=== PATIENT | female | born 1950 | race Caucasian/White ===

== ENCOUNTER 2022-10-28 20:19 | Inpatient (IN) | payer MEDICARE ==
--- NOTE | 2022-10-28 20:38 | ED ---
General Adult HPI - General Chief complaint: Weakness Stated complaint: weakness Time Seen by Provider: 10/28/22 20:26 Source: patient, family Mode of arrival: EMS Limitations: no limitations - History of Present Illness Initial comments: Patient presents to the ED by ambulance for evaluation with her daughter at bedside. Patient states that she has MS, and she has had progressively increasing generalized weakness over the past 6 months or so. Patient states that she has now become unable to stand up and ambulate on her own. Patient's daughter states that she has been taking care of the patient for the past several days. Patient's daughter states that the patient was diagnosed with an abdominal mass on a CT done at [facility] about 3 months ago, and they were told that it may be ovarian cancer. Patient was instructed to follow up wi th an oncologist, but she states that she has not done so yet. Patient also admits to having increasing bilateral lower extremity edema. Patient's daughter states that the patient has not been eating very much over the past week or so. Patient denies trauma/injury/fall, any pain, fever or chills, headache, focal numbness/weakness/neuro deficit, cough or cold symptoms, chest pain, dyspnea, palpitations, dizziness, abdominal pain, nausea/vomiting/diarrhea, constipation, bloody or melanotic stool, dysuria or urinary symptoms, decreased urine output, or any other symptoms or complaints. Patient reports that she is DO NOT RESUSCITATE. - Related Data Home Medications Medication Instructions Recorded Confirmed Acetaminophen [Tylenol Extra 1,000 mg PO BID 10/28/22 10/28/22 Strength] Allergies Allergy/AdvReac Type Severity Reaction Status Date / Time erythromycin base Allergy Unknown Verified 10/28/22 21:06 Penicillins Allergy Unknown Verified 10/28/22 21:06 Sulfa (Sulfonamide Allergy Unknown Verified 10/28/22 21:06 Antibiotics) Review of Systems ROS Statement: Those systems with pertinent positive or pertinent negative responses have been documented in the HPI. ROS Other: All systems not noted in ROS Statement are negative. Past Medical History Additional Past Medical History / Comment(s): MS Smoking Status: Current every day smoker General Exam Limitations: no limitations General appearance: alert, cachectic Head exam: Present: atraumatic, normocephalic Eye exam: Present: normal appearance, PERRL, EOMI ENT exam: Present: mucous membranes dry Neck exam: Present: other (Trachea is in midline) Respiratory exam: Present: normal lung sounds bilaterally. Absent: respiratory distress, wheezes, rales, rhonchi, stridor Cardiovascular Exam: Present: regular rate, normal rhythm, normal heart sounds, other (Normal radial pulses bilaterally) GI/Abdominal exam: Present: soft, diminished bowel sounds, other (Firm right lo wer quadrant abdominal mass is palpable on exam). Absent: tenderness, guarding Extremities exam: Present: other (Bilateral lower extremity pitting edema; stage I sacral decubitus ulcer). Absent: calf tenderness Back exam: Absent: CVA tenderness (R), CVA tenderness (L) Neurological exam: Present: alert, oriented X3, CN II-XII intact. Absent: motor sensory deficit Psychiatric exam: Present: normal affect, normal mood Skin exam: Present: warm, dry, intact, normal color Course Vital Signs 10/28/22 10/28/22 10/28/22 20:20 21:00 22:00 Temperature 97.7 F Pulse Rate 103 H 101 H 80 Respiratory 16 16 16 Rate Blood Pressure 112/76 114/63 117/68 O2 Sat by Pulse 100 100 99 Oximetry 10/28/22 23:00 Temperature Pulse Rate 86 Respiratory 16 Rate Blood Pressure 115/55 O2 Sat by Pulse 98 Oximetry - Reevaluation(s) Reevaluation #1: 10/28/22 23:34 Case, H&P, test results and ED management thus far were discussed with Dr. Saleh. He accepts hospital admission. He agrees with oncology consultation. He has no further recommendations at this time. EKG Findings - EKG Comments: EKG Findings:: ED physician interpretation: Normal sinus rhythm, no ectopy, ventricular rate of 96 bpm, normal HI and QRS intervals, normal QT interval, normal axis, no ST or T-wave abnormality Medical Decision Making - Medical Decision Making Was pt. sent in by a medical professional or institution (, PA, COUNCIL ON AGING DIRECTOR, urgent care, hospital, or [facility]...) When possible be specific @ -[No] Did you speak to anyone other than the patient for history (EMS, parent, family, police, friend...)? What history was obtained from this source @ -Patient's daughter also provided medical history. Did you review nursing and triage notes (agree or disagree)? Why? @ -[I reviewed and agree with nursing and triage notes] Were old charts reviewed (outside hosp., previous admission, EMS record, old EKG, old radiological studies, urgent care reports/EKG's, [facility] records)? Report findings @ -[No old charts were reviewed] Differential Diagnosis (chest pain, altered mental status, abdominal pain women, abdominal pain men, vaginal bleeding, weakness, fever, dyspnea, syncope, headache, dizziness, GI bleed, back pain, seizure, CVA, palpatations, mental health, musculoskeletal)? @ -Differential Weakness: Hypoglycemia, hyperglycemia, shock, sepsis, hyponatremia, anemia, infection, IA, ETOH, adverse medicine reaction, overdose, dehydration, electrolyte abnormality, renal disease, abdominal mass, malignancy, this is not meant to be an all- inclusive list. EKG interpreted by me (3pts min.). @ -[As above] X-rays interpreted by me (1pt min.). @ -[Chest x-ray was reviewed myself, and agree with the radiologist's interpretation as above.] CT interpreted by me (1pt min.). @ -[CT abdomen/pelvis was reviewed myself, and agree with the radiologist's interpretation as above.] U/S interpreted by me (1pt. min.). @ -[None done] What testing was considered but not performed or refused? (CT, X-rays, U/S, labs)? Why? @ -[None] What meds were considered but not given or refused? Why? @ -[None] Did you discuss the management of the patient with other professionals (professionals i.e. , PA, COUNCIL ON AGING DIRECTOR, lab, RT, psych nurse, social media senior associate, aircraft log clerk, teacher, chief analytics officer, leather case finisher)? Give summary @ -As above Was smoking cessation discussed for >3mins.? @ -[No] Was critical care preformed (if so, how long)? @ -[No] Were there social determinants of health that impacted care today? How? (Homelessness, low income, unemployed, alcoholism, drug addiction, transportation, low edu. Level, literacy, decrease access to med. care, fpc, rehab)? @ -[No] Was there de-escalation of care discussed even if they declined (Discuss DNR or withdrawal of care, Hospice)? DNR status @ -[No] What co-morbidities impacted this encounter? (DM, HTN, Smoking, COPD, CAD, Cancer, CVA, ARF, Chemo, Hep., AIDS, mental health diagnosis, sleep apnea, morbid obesity)? @ -Multiple sclerosis Was patient admitted / discharged? Hospital course, mention meds given and route, prescriptions, significant lab abnormalities, going to OR and other pertinent info. @ -[Patient and daughter are aware the patient's test results, and they both agree with hospital admission at this time. I suspect that the patient's progressing weakness and cachexia are likely due to malignancy given the large mass seen on her abdominal/pelvic CT. Patient has been treated with IV fluid hydration in the ED. Patient has leukocytosis, but she is afebrile and without an infectious source at this time Will admit the patient to the hospital for further evaluation and management. Dr. Saleh has accepted hospital admission.] Undiagnosed new problem with uncertain prognosis? @ -[No] Drug Therapy requiring intensive monitoring for toxicity (Heparin, Nitro, Insulin, Cardizem)? @ -[No] Were any procedures done? @ -[No] Diagnosis/symptom? @ -Generalized weakness Acute, or Chronic, or Acute on Chronic? @ -Acute on chronic Uncomplicated (without systemic symptoms) or Complicated (systemic symptoms)? @ -[default] Side effects of treatment? @ -[No] Exacerbation, Progression, or Severe Exacerbation? @ -[No] Poses a threat to life or bodily function? How? (Chest pain, USA, IA, pneumonia, PE, COPD, DKA, ARF, appy, cholecystitis, CVA, Diverticulitis, Homicidal, Suicidal, threat to staff... and all critical care pts) @ -[No] Diagnosis/symptom? @ -[Large abdominal mass] Acute, or Chronic, or Acute on Chronic? @ -[Chronic] Uncomplicated (without systemic symptoms) or Complicated (systemic symptoms)? @ -[default] Side effects of treatment? @ -[none] Exacerbation, Progression, or Severe Exacerbation] @ -[no] Poses a threat to life or bodily function? @ -[no] Diagnosis/symptom? @ -[Bilateral lower extremity edema] Acute, or Chronic, or Acute on Chronic? @ -[Acute on chronic] Uncomplicated (without systemic symptoms) or Complicated (systemic symptoms)? @ -[default] Side effects of treatment? @ -[none] Exacerbation, Progression, or Severe Exacerbation] @ -[no] Poses a threat to life or bodily function? @ -[no] - Lab Data Result diagrams: 10/28/22 20:52 10/28/22 20:52 Lab Results 10/28/22 10/28/22 10/28/22 Range/Units 20:52 20:52 20:52 WBC 30.7 H (3.8-10.6) k/uL RBC 3.87 (3.80-5.40) m/uL Hgb 11.1 L (11.4-16.0) gm/dL Hct 36.5 (34.0-46.0) % MCV 94.4 (80.0-100.0) fL MCH 28.8 (25.0-35.0) pg MCHC 30.5 L (31.0-37.0) g/dL RDW 15.4 (11.5-15.5) % Plt Count 788 H (150-450) k/uL MPV 8.9 Neutrophils % 97 % Lymphocytes % 1 % Monocytes % 1 % Eosinophils % 0 % Basophils % 0 % Neutrophils # 29.8 H (1.3-7.7) k/uL Lymphocytes # 0.4 L (1.0-4.8) k/uL Monocytes # 0.4 (0-1.0) k/uL Eosinophils # 0.0 (0-0.7) k/uL Basophils # 0.1 (0-0.2) k/uL Manual Slide Review Performed PT 10.1 (9.0-12.0) sec INR 0.9 (<1.2) APTT 24.6 (22.0-30.0) sec Sodium 131 L (137-145) mmol/L Potassium 4.9 (3.5-5.1) mmol/L Chloride 96 L (98-107) mmol/L Carbon Dioxide 25 (22-30) mmol/L Anion Gap 10 mmol/L BUN 28 H (7-17) mg/dL Creatinine 0.54 (0.52-1.04) mg/dL Est GFR (CKD-EPI)AfAm >90 (>60 ml/min/1.73 sqM) Est GFR (CKD-EPI)NonAf >90 (>60 ml/min/1.73 sqM) Glucose 108 H (74-99) mg/dL Lactic Ac Sepsis Rflx Plasma Lactic Acid Roberto (0.7-2.0) mmol/L Calcium 8.3 L (8.4-10.2) mg/dL Magnesium 1.9 (1.6-2.3) mg/dL Total Bilirubin 0.6 (0.2-1.3) mg/dL AST 31 (14-36) U/L ALT 19 (4-34) U/L Alkaline Phosphatase 265 H (38-126) U/L Troponin I (0.000-0.034) ng/mL NT-Pro-B Natriuret Pep pg/mL Total Protein 5.7 L (6.3-8.2) g/dL Albumin 2.9 L (3.5-5.0) g/dL TSH 2.820 (0.465-4.680) mIU/L 10/28/22 10/28/22 10/28/22 Range/Units 20:52 20:52 20:52 WBC (3.8-10.6) k/uL RBC (3.80-5.40) m/uL Hgb (11.4-16.0) gm/dL Hct (34.0-46.0) % MCV (80.0-100.0) fL MCH (25.0-35.0) pg MCHC (31.0-37.0) g/dL RDW (11.5-15.5) % Plt Count (150-450) k/uL MPV Neutrophils % % Lymphocytes % % Monocytes % % Eosinophils % % Basophils % % Neutrophils # (1.3-7.7) k/uL Lymphocytes # (1.0-4.8) k/uL Monocytes # (0-1.0) k/uL Eosinophils # (0-0.7) k/uL Basophils # (0-0.2) k/uL Manual Slide Review PT (9.0-12.0) sec INR (<1.2) APTT (22.0-30.0) sec Sodium (137-145) mmol/L Potassium (3.5-5.1) mmol/L Chloride (98-107) mmol/L Carbon Dioxide (22-30) mmol/L Anion Gap mmol/L BUN (7-17) mg/dL Creatinine (0.52-1.04) mg/dL Est GFR (CKD-EPI)AfAm (>60 ml/min/1.73 sqM) Est GFR (CKD-EPI)NonAf (>60 ml/min/1.73 sqM) Glucose (74-99) mg/dL Lactic Ac Sepsis Rflx Plasma Lactic Acid Roberto 2.6 H* (0.7-2.0) mmol/L Calcium (8.4-10.2) mg/dL Magnesium (1.6-2.3) mg/dL Total Bilirubin (0.2-1.3) mg/dL AST (14-36) U/L ALT (4-34) U/L Alkaline Phosphatase (38-126) U/L Troponin I <0.012 (0.000-0.034) ng/mL NT-Pro-B Natriuret Pep 602 pg/mL Total Protein (6.3-8.2) g/dL Albumin (3.5-5.0) g/dL TSH (0.465-4.680) mIU/L 10/28/22 Range/Units 21:32 WBC (3.8-10.6) k/uL RBC (3.80-5.40) m/uL Hgb (11.4-16.0) gm/dL Hct (34.0-46.0) % MCV (80.0-100.0) fL MCH (25.0-35.0) pg MCHC (31.0-37.0) g/dL RDW (11.5-15.5) % Plt Count (150-450) k/uL MPV Neutrophils % % Lymphocytes % % Monocytes % % Eosinophils % % Basophils % % Neutrophils # (1.3-7.7) k/uL Lymphocytes # (1.0-4.8) k/uL Monocytes # (0-1.0) k/uL Eosinophils # (0-0.7) k/uL Basophils # (0-0.2) k/uL Manual Slide Review PT (9.0-12.0) sec INR (<1.2) APTT (22.0-30.0) sec Sodium (137-145) mmol/L Potassium (3.5-5.1) mmol/L Chloride (98-107) mmol/L Carbon Dioxide (22-30) mmol/L Anion Gap mmol/L BUN (7-17) mg/dL Creatinine (0.52-1.04) mg/dL Est GFR (CKD-EPI)AfAm (>60 ml/min/1.73 sqM) Est GFR (CKD-EPI)NonAf (>60 ml/min/1.73 sqM) Glucose (74-99) mg/dL Lactic Ac Sepsis Rflx Y Plasma Lactic Acid Roberto (0.7-2.0) mmol/L Calcium (8.4-10.2) mg/dL Magnesium (1.6-2.3) mg/dL Total Bilirubin (0.2-1.3) mg/dL AST (14-36) U/L ALT (4-34) U/L Alkaline Phosphatase (38-126) U/L Troponin I (0.000-0.034) ng/mL NT-Pro-B Natriuret Pep pg/mL Total Protein (6.3-8.2) g/dL Albumin (3.5-5.0) g/dL TSH (0.465-4.680) mIU/L - Radiology Data Chest x-ray: COPD. No acute lung disease. Mild pleural scarring noted at the lung apices. CT abdomen/pelvis with IV contrast: Large abdominal mass with mixed attenuation and enhancement consistent with tumor. No bowel obstruction. Retroperitoneal lymphadenopathy. Disposition Clinical Impression: Weakness, Bilateral lower extremity edema, Abdominal mass Disposition: ADMITTED IP TO THIS HOSP Condition: Stable Is patient prescribed a controlled substance at d/c from ED?: No Time of Disposition: 23:34
[2022-10-28] MEDS ORDERED: SODIUM CHLORIDE 0.9% 500 ML 500 ML IV STA (20:52)
[2022-10-28 21:18] LABS: INR 0.9 (<1.2); Partial Thromboplastin Time 24.6 sec (22.0-30.0); Prothrombin Time 10.1 sec (9.0-12.0)
[2022-10-28 21:22] LABS: ALT 19 U/L (4-34); AST 31 U/L (14-36); African American GFR (CKD) >90 (>60 ml/min/1.73 sqM); Albumin 2.9 g/dL (3.5-5.0); Alkaline Phosphatase 265 U/L (38-126); Anion Gap 10 mmol/L; Blood Urea Nitrogen 28 mg/dL (7-17); Calcium 8.3 mg/dL (8.4-10.2); Carbon Dioxide 25 mmol/L (22-30); Chloride 96 mmol/L (98-107); Glucose 108 mg/dL (74-99); Magnesium 1.9 mg/dL (1.6-2.3); Non-African American GFR(CKD) >90 (>60 ml/min/1.73 sqM); Potassium 4.9 mmol/L (3.5-5.1); Sodium 131 mmol/L (137-145); Total Bilirubin 0.6 mg/dL (0.2-1.3); Total Protein 5.7 g/dL (6.3-8.2)
--- NOTE | 2022-10-28 21:27 | XR ---
EXAMINATION TYPE: XR chest 1V portable DATE OF EXAM: 10/28/2022 COMPARISON: NONE HISTORY: Weakness TECHNIQUE: Single view FINDINGS: There is pulmonary hyperinflation and flattening the diaphragms. Heart size is normal. Ther e is left shoulder prosthesis. There are chest leads. There are no hilar masses. The bony thorax is i ntact. IMPRESSION: COPD. No acute lung disease. Mild pleural scarring noted at the lung apices
[2022-10-28 21:46] LABS: Basophils # (A) 0.1 k/uL (0-0.2); Basophils % (A) 0 %; Eosinophils % (A) 0 %; HCT 36.5 % (34.0-46.0); HGB 11.1 gm/dL (11.4-16.0); Lymphocytes # (A) 0.4 k/uL (1.0-4.8); Lymphocytes % (A) 1 %; MCH 28.8 pg (25.0-35.0); MCHC 30.5 g/dL (31.0-37.0); MCV 94.4 fL (80.0-100.0); Mean Platelet Volume 8.9; Monocytes # (A) 0.4 k/uL (0-1.0); Monocytes % (A) 1 %; Neutrophils # (A) 29.8 k/uL (1.3-7.7); Neutrophils % (A) 97 %; Platelet Count 788 k/uL (150-450); RBC 3.87 m/uL (3.80-5.40); RDW 15.4 % (11.5-15.5)
[2022-10-28 21:50] LABS: WBC 30.7 k/uL (3.8-10.6)
--- NOTE | 2022-10-28 22:50 | CT ---
EXAMINATION TYPE: CT abdomen pelvis w con DATE OF EXAM: 10/28/2022 COMPARISON: Abdominal mass HISTORY: abdominal mass CT DLP: 456.5 mGycm Automated exposure control for dose reduction was used. CONTRAST: Performed with IV Contrast, patient injected with 100ml mL of Isovue 300. Lung bases are clear of infiltrate. Heart size is normal. There is small hiatal hernia. No pleural ef fusion. No pericardial effusion. There are multiple hepatic cysts up to 2 cm. Spleen is intact. No pa ncreatic mass. The bile ducts are not dilated. There are clips from cholecystectomy. There are multiple retroperitoneal masses around the abdominal aorta. Largest measures 5 cm anterior to the left kidney. Kidneys of normal size. There is some thickening of the left and right adrenal gl and. No hydronephrosis. Delayed images show normal renal excretion. Abdominal aorta is atheromatous. There is a large mass in the midline abdomen which is septated and extends from the midabdomen to the floor the pelvis. Mass measures 21 x 19 x 11 cm. There is some internal enhancement in the mass. The re is likely some cystic large components. There is no inguinal hernia. Urinary bladder appears intact. No ascites. No evidence of a bowel obstr uction. The lumbar vertebrae have normal alignment. There is L2 mild compression fracture 15% which is probab ly old. The bony pelvis is intact. There is no ascites. Appendix not seen. No sign thickened appendix. IMPRESSION: Large abdominal mass with mixed attenuation and enhancement consistent with tumor. No bowel obstruction. Retroperitoneal lymphadenopathy.
[2022-10-28] MEDS ORDERED: NALOXONE 0.4 MG/ML 1 ML VIAL IV PRN (23:35)
[2022-10-28] MEDS: SODIUM CHLORIDE 0.9% 1,000 ML IV SCH (23:47)
[2022-10-29 00:01] LABS: Appearance,Urine Clear (Clear); Bilirubin,Urine Negative (Negative); Blood,Urine Negative (Negative); Color,Urine Yellow; Glucose,Urine (UA) Negative (Negative); Ketones,Urine Negative (Negative); Leukocyte Esterase,Urine Negative (Negative); Nitrite,Urine Negative (Negative); PH, Urine 6.5 (5.0-8.0); Protein,Urine Trace (Negative); Urobilinogen,Urine <2.0 mg/dL (<2.0)
[2022-10-29 00:02] LABS: Specific Gravity,Urine >1.050 (1.001-1.035)
[2022-10-29] MEDS: ACETAMINOPHEN TAB 325 MG TAB PO PRN ×2 (02:19→11:16)
--- NOTE | 2022-10-29 03:21 | P.HPIM ---
History of Present Illness H&P Date: 10/28/22 The patient is a 72-year-old female with no known PMH who was brought in to the emergency room accompanied by her daughter for failure to thrive. The patient states that she was diagnosed with a large abdominal mass after a hospital visit 6 months ago. She was informed after CT abdomen that she likely had ovarian cancer and was advised to follow-up with her PCP in [employer]. The patient however refused to make any further appointments and had not been seen by any medical provider. She continued to gradually lose weight over the past 6 months and is now unable to ambulate and has had minimal oral intake over the last one week. She reports feeling fatigued and having leg achiness. She also reports gradually worsening bilateral lower extremity pitting edema over the past several months. Denies experiencing chest discomfort or shortness of breath. Also denied fever, chills, cough. CT abdomen and pelvis in the emergency room revealed large abdominal mass with mixed attenuation consistent with tumor as well as retroperitoneal lymphadenopathy. Chest x-ray was consistent with COPD. EKG reveals sinus rhythm with short MT interval at 96 bpm. Laboratory evaluation was remarkable for leukocytosis of 30.7, platelet count 788, lactic acid 2.6, sodium 137 1, chloride 96, BUN 28, and proBNP 602. Review of systems: Pertinent positives and negatives as discussed in HPI, a complete review of systems was performed and all other systems are negative. Physical examination: General: Ill-appearing cachectic female, no distress, appears significantly older than stated age Derm: no unusual rashes/lesions, warm Head: atraumatic, normocephalic, symmetric Eyes: EOMI, no lid lag, anicteric sclera, pupils equal round reactive to light ENT: Nose and ears atraumatic Neck: No cervical lymphadenopathy, trachea midline, supple Mouth: no lip lesion, mucus membranes moist Cardiovascular: S1S2 reg, no murmur, positive dorsalis pedis pulse bilateral, 2+ bilateral lower extremity pitting edema Lungs: CTA bilateral, no rhonchi, no rales, no accessory muscle use Abdominal: distended with palpable nodularity and underling mass, no guarding Ext: muscle strength 2 out of 5 in all 4 extremities grossly, no contractures Neuro: CN II-XI grossly intact, no gross focal neuro deficits Psych: Alert, oriented, appropriate affect Assessment/plan Large abdominal mass with retroperitoneal adenopathy -Oncology consulted for prognostic guidance as patient may not be a candidate for chemotherapy due to severe debility Lactic acidosis -Monitor for resolution Hypochloremic hyponatremia -Suspect due to poor oral intake -Gentle IV hydration DVT prophylaxis -Lovenox The patient is admitted with an anticipated greater than 2 midnight stay for evaluation of abdominal mass CODE STATUS: Full Code Discussed with: Patient, Daughter Anticipated discharge place: Home Past Medical History Additional Past Medical History / Comment(s): MS Smoking Status: Current every day smoker Medications and Allergies Home Medications Medication Instructions Recorded Confirmed Type Acetaminophen [Tylenol Extra 1,000 mg PO BID 10/28/22 10/28/22 History Strength] Allergies Allergy/AdvReac Type Severity Reaction Status Date / Time erythromycin base Allergy Unknown Verified 10/28/22 21:06 Penicillins Allergy Unknown Verified 10/28/22 21:06 Sulfa (Sulfonamide Allergy Unknown Verified 10/28/22 21:06 Antibiotics) Physical Exam Vitals: Vital Signs Temp Pulse Resp BP Pulse Ox 10/28/22 23:00 86 16 115/55 98 10/28/22 22:00 80 16 117/68 99 10/28/22 21:00 101 H 16 114/63 100 10/28/22 20:20 97.7 F 103 H 16 112/76 100 Intake and Output 10/28/22 10/28/22 10/29/22 14:59 22:59 06:59 Other: Weight 45.359 kg Results CBC & Chem 7: 10/28/22 20:52 10/29/22 04:31 Labs: Abnormal Lab Results - Last 24 Hours (Table) 10/28/22 10/28/22 10/28/22 Range/Units 20:52 20:52 20:52 WBC 30.7 H (3.8-10.6) k/uL Hgb 11.1 L (11.4-16.0) gm/dL MCHC 30.5 L (31.0-37.0) g/dL Plt Count 788 H (150-450) k/uL Neutrophils # 29.8 H (1.3-7.7) k/uL Lymphocytes # 0.4 L (1.0-4.8) k/uL Sodium 131 L (137-145) mmol/L Chloride 96 L (98-107) mmol/L BUN 28 H (7-17) mg/dL Glucose 108 H (74-99) mg/dL Plasma Lactic Acid Roberto 2.6 H* (0.7-2.0) mmol/L Calcium 8.3 L (8.4-10.2) mg/dL Alkaline Phosphatase 265 H (38-126) U/L Total Protein 5.7 L (6.3-8.2) g/dL Albumin 2.9 L (3.5-5.0) g/dL
[2022-10-29 05:00] LABS: Basophils # (A) 0.1 k/uL (0-0.2); Basophils % (A) 0 %; Eosinophils % (A) 0 %; HCT 32.6 % (34.0-46.0); HGB 9.9 gm/dL (11.4-16.0); Hypochromasia Slight; Lymphocytes # (A) 0.4 k/uL (1.0-4.8); Lymphocytes % (A) 2 %; MCH 28.8 pg (25.0-35.0); MCHC 30.3 g/dL (31.0-37.0); MCV 95.2 fL (80.0-100.0); Monocytes # (A) 0.3 k/uL (0-1.0); Monocytes % (A) 1 %; Neutrophils # (A) 26.2 k/uL (1.3-7.7); Neutrophils % (A) 96 %; Platelet Count 742 k/uL (150-450); RBC 3.43 m/uL (3.80-5.40); RDW 15.3 % (11.5-15.5); WBC 27.1 k/uL (3.8-10.6)
[2022-10-29 05:12] LABS: ALT 14 U/L (4-34); AST 27 U/L (14-36); African American GFR (CKD) >90 (>60 ml/min/1.73 sqM); Albumin 2.4 g/dL (3.5-5.0); Alkaline Phosphatase 214 U/L (38-126); Anion Gap 9 mmol/L; Blood Urea Nitrogen 24 mg/dL (7-17); Calcium 7.8 mg/dL (8.4-10.2); Carbon Dioxide 22 mmol/L (22-30); Chloride 102 mmol/L (98-107); Glucose 70 mg/dL (74-99); Non-African American GFR(CKD) >90 (>60 ml/min/1.73 sqM); Potassium 4.9 mmol/L (3.5-5.1); Sodium 133 mmol/L (137-145); Total Bilirubin 0.6 mg/dL (0.2-1.3)
[2022-10-29] MEDS ORDERED: RX INFO: IV CONTRAST WAS GIVEN 1 EACH MISC MISCELLANE PRN (09:34)
[2022-10-29 13:21] VITALS: BMI 18.3
[2022-10-29] MEDS: SODIUM CHLORIDE 0.9% 1,000 ML IV SCH ×2 (15:33→16:52)
[2022-10-29] MEDS ORDERED: KETOROLAC 15 MG/ML 1 ML VIAL IVP STA (16:32)
--- NOTE | 2022-10-29 16:35 | P.PN ---
Subjective Progress Note Date: 10/29/22 The patient is a 72-year-old female with no known PMH who was brought in to the emergency room accompanied by her daughter for failure to thrive. The patient states that she was diagnosed with a large abdominal mass after a hospital visit 6 months ago. She was informed after CT abdomen that she likely had ovarian cancer and was advised to follow-up with her PCP in [place]. The patient however refused to make any further appointments and had not been seen by any medical provider. She continued to gradually lose weight over the past 6 months and is now unable to ambulate and has had minimal oral intake over the last one week. She reports feeling fatigued and having leg achiness. She also reports g radually worsening bilateral lower extremity pitting edema over the past several months. Denies experiencing chest discomfort or shortness of breath. Also denied fever, chills, cough. CT abdomen and pelvis in the emergency room revealed large abdominal mass with mixed attenuation consistent with tumor as well as retroperitoneal lymphadenopathy. Chest x-ray was consistent with COPD. EKG reveals sinus rhythm with short IL interval at 96 bpm. Laboratory evaluation was remarkable for leukocytosis of 30.7, platelet count 788, lactic acid 2.6, sodium 137 1, chloride 96, BUN 28, and proBNP 602. Patient was seen and examined. No acute events overnight. Patient reports throbbing-like pain in both of her feet. She reports family history of BRCA positive breast cancer and ovarian cancer in 3 of her relatives. She reports a poor appetite and weight loss over an unspecified period of time. Gen: awake, alert, cachectic HEENT: normocephalic, atraumatic, good hearing acuity, moist mucous membranes Resp: good air exchange, breathing comfortably with no accessory muscle use CVS: good distal perfusion x 4, GI: Distended MSK: no pitting edema, no clubbing Neuro: non-focal, moving all extremities Psych: cooperative, euthymic mood #Abdominal mass #Leukocytosis #Normocytic anemia with thrombocytosis #Hyponatremia #Prerenal azotemia Resolved: Lactic acidosis Based on my assessment of this patient, this patient meets a high complexity level of care. I have reviewed the following communication consultant notes: I have reviewed the results of the following tests: CBC shows WBC count of 27.1 which is decreased from 30.7 on admission. Her hemoglobin has dropped from 11.1-9.9 with platelet count of 742. Thrombocytosis and leukocytosis is likely reactive. There is no source of obvious infection. BMP shows sodium of 133, BUN of 24 and creatinine of 0.46. This is likely due to dehydration. Repeat lactic acid is 1.7 which is decreased from 2.6. I have ordered the following tests: Agree with CEA, CA-19-9, CA 125. Agree with CT chest. I have discussed the care of this patient with the following independent historian: The case was discussed with the daughter reports positive family history for BRCA positive and multiple relatives with breast and ovarian cancer. I have independently interpreted the following test below: CT AP reviewed which shows a large abdominal mass extending to the floor the pelvis. I have discussed the management of this patient with the following physician: Case discussed with Dr. Horton who recommends gyne onc evaluation on discharge. She is agreeable for CEA, CA-19-9 and CA 125 cancer markers. This patient has a high risk of morbidity due to the following reasons: Patient has an acute diagnosis of abdominal mass which is likely cancerous with family history of BRCA positive breast and ovarian cancer that poses a threat to life or bodily function. Her BMI is 18.3 and she is also failure to thrive. Patient requires pain control with Toradol 15 mg IV Q6H as needed for pain and Morphine 2 mg IV Q6H as needed for severe pain. She will be continued on normal saline at 70 ml/hr for hyponatremia and prerenal azotemia related to dehydration. CEA, CA-19-9 and CA [address] chest is ordered. Oncology consult is pending. Objective - Vital Signs Vital signs: Vital Signs Temp 97.5 F L 10/29/22 12:00 Pulse 76 10/29/22 12:00 Resp 16 10/29/22 12:00 BP 101/63 10/29/22 12:00 Pulse Ox 92 L 10/29/22 12:00 FiO2 Intake & Output 10/28/22 10/29/22 10/29/22 18:59 06:59 18:59 Weight 45.359 kg 45.359 kg Other: Voiding Method Diaper Incontinent - Labs CBC & Chem 7: 10/29/22 04:31 10/29/22 04:31 Labs: Abnormal Lab Results - Last 24 Hours (Table) 10/28/22 10/28/22 10/28/22 Range/Units 20:52 20:52 20:52 WBC 30.7 H (3.8-10.6) k/uL RBC (3.80-5.40) m/uL Hgb 11.1 L (11.4-16.0) gm/dL Hct (34.0-46.0) % MCHC 30.5 L (31.0-37.0) g/dL Plt Count 788 H (150-450) k/uL Neutrophils # 29.8 H (1.3-7.7) k/uL Lymphocytes # 0.4 L (1.0-4.8) k/uL Sodium 131 L (137-145) mmol/L Chloride 96 L (98-107) mmol/L BUN 28 H (7-17) mg/dL Creatinine (0.52-1.04) mg/dL Glucose 108 H (74-99) mg/dL Plasma Lactic Acid Roberto 2.6 H* (0.7-2.0) mmol/L Calcium 8.3 L (8.4-10.2) mg/dL Alkaline Phosphatase 265 H (38-126) U/L Total Protein 5.7 L (6.3-8.2) g/dL Albumin 2.9 L (3.5-5.0) g/dL Ur Specific [place] (1.001-1.035) Urine Protein (Negative) 10/28/22 10/29/22 10/29/22 Range/Units 23:45 04:31 04:31 WBC 27.1 H (3.8-10.6) k/uL RBC 3.43 L (3.80-5.40) m/uL Hgb 9.9 L (11.4-16.0) gm/dL Hct 32.6 L (34.0-46.0) % MCHC 30.3 L (31.0-37.0) g/dL Plt Count 742 H (150-450) k/uL Neutrophils # 26.2 H (1.3-7.7) k/uL Lymphocytes # 0.4 L (1.0-4.8) k/uL Sodium 133 L (137-145) mmol/L Chloride (98-107) mmol/L BUN 24 H (7-17) mg/dL Creatinine 0.46 L (0.52-1.04) mg/dL Glucose 70 L (74-99) mg/dL Plasma Lactic Acid Roberto (0.7-2.0) mmol/L Calcium 7.8 L (8.4-10.2) mg/dL Alkaline Phosphatase 214 H (38-126) U/L Total Protein 5.0 L (6.3-8.2) g/dL Albumin 2.4 L (3.5-5.0) g/dL Ur Specific [place] >1.050 H (1.001-1.035) Urine Protein Trace H (Negative)
--- NOTE | 2022-10-29 16:56 | P.CONS ---
History of Present Illness - Reason for Consult Consult date: 10/29/22 abdominal mass Requesting physician: Panfilo Bee - Chief Complaint weakness - History of Present Illness Patient is a 72-year-old female with a history of 50 pack year smoker. We were consult it for abdominal mass found on CT scan. She presented to the emergency room were generalized weakness and failure to thrive. Patient reports that she has been having progressive lower extremity weakness and decreased mobility. She also reports decreased appetite but states no recent weight loss. She also reports numbness and tingling in bilateral feet. She denies blood in stool. Denies nausea vomiting diarrhea and states she is having regular BMs. Denies fever and chills. Last colonoscopy was approximately 10 years ago, and she reports two polyps were found at that time but otherwise was normal. Patient reports being seen at [facility] approximately 3 months ago and was found at that time to have abdominal/pelvic masses. But has not had any follow-up since, as patient reports over the holidays she did not want to deal with it at that time. CT abdomen/pelvis in the emergency room revealed large abdominal mass with mixed attenuation and enhancement consistent with tumor and retroperitoneal lymphadenopathy. Chest x-ray was consistent with COPD, no acute processes noted Labs today show leukocytosis of 27.1, platelet count 742,000, hemoglobin 9.9. UA negative for acute infection Review of Systems 10 point ROS is negative except as stated in the HPI Past Medical History Past Medical History: COPD, Osteoarthritis (OA) Additional Past Medical History / Comment(s): MS History of Any Multi-Drug Resistant Organisms: None Reported Past Surgical History: Cholecystectomy Additional Past Surgical History / Comment(s): L shoulder and L knee replace Smoking Status: Current every day smoker Medications and Allergies Home Medications Medication Instructions Recorded Confirmed Type Acetaminophen [Tylenol Extra 1,000 mg PO BID 10/28/22 10/28/22 History Strength] Allergies Allergy/AdvReac Type Severity Reaction Status Date / Time erythromycin base Allergy Unknown Verified 10/28/22 21:06 Penicillins Allergy Unknown Verified 10/28/22 21:06 Sulfa (Sulfonamide Allergy Unknown Verified 10/28/22 21:06 Antibiotics) Physical Exam Vitals: Vital Signs Temp Pulse Pulse Resp BP BP Pulse Ox 10/29/22 12:00 97.5 F L 76 16 101/63 92 L 10/29/22 06:57 98.3 F 70 16 102/59 92 L 10/29/22 06:05 98 F 87 16 101/61 97 10/29/22 04:00 84 16 104/53 97 10/29/22 03:00 95 16 106/64 99 10/29/22 02:00 98 16 113/58 96 10/29/22 01:00 89 16 113/65 96 10/29/22 00:00 106 H 16 101/63 95 10/28/22 23:00 86 16 115/55 98 10/28/22 22:00 80 16 117/68 99 10/28/22 21:00 101 H 16 114/63 100 10/28/22 20:20 97.7 F 103 H 16 112/76 100 Intake and Output 10/29/22 10/29/22 10/29/22 06:59 14:59 22:59 Other: Voiding Method Diaper Incontinent Weight 45.359 kg 45.359 kg - Constitutional General appearance: no acute distress, thin - EENT Eyes: anicteric sclerae, EOMI ENT: hearing grossly normal - Neck left sided cervical adenopathy noted Neck: lymphadenopathy - Respiratory Respiratory: bilateral: CTA - Cardiovascular Rhythm: regular Heart sounds: normal: S1, S2 Abnormal Heart Sounds: no systolic murmur, no diastolic murmur, no rub, no S3 Gallop, no S4 Gallop, no click, no other leg Peripheral Edema: bilateral: 2+ - Gastrointestinal mass of lower abdomen palpable General gastrointestinal: distended, normal bowel sounds, no tenderness - Integumentary Integumentary: pale - Neurologic grossly intact - Musculoskeletal Musculoskeletal: generalized weakness - Psychiatric Psychiatric: A&O x's 3, appropriate affect, intact judgment & insight Results CBC & Chem 7: 10/29/22 04:31 10/29/22 04:31 Labs: Abnormal Lab Results - Last 24 Hours (Table) 10/28/22 10/28/22 10/28/22 Range/Units 20:52 20:52 20:52 WBC 30.7 H (3.8-10.6) k/uL RBC (3.80-5.40) m/uL Hgb 11.1 L (11.4-16.0) gm/dL Hct (34.0-46.0) % MCHC 30.5 L (31.0-37.0) g/dL Plt Count 788 H (150-450) k/uL Neutrophils # 29.8 H (1.3-7.7) k/uL Lymphocytes # 0.4 L (1.0-4.8) k/uL Sodium 131 L (137-145) mmol/L Chloride 96 L (98-107) mmol/L BUN 28 H (7-17) mg/dL Creatinine (0.52-1.04) mg/dL Glucose 108 H (74-99) mg/dL Plasma Lactic Acid Roberto 2.6 H* (0.7-2.0) mmol/L Calcium 8.3 L (8.4-10.2) mg/dL Alkaline Phosphatase 265 H (38-126) U/L Total Protein 5.7 L (6.3-8.2) g/dL Albumin 2.9 L (3.5-5.0) g/dL Ur Specific [place] (1.001-1.035) Urine Protein (Negative) 10/28/22 10/29/22 10/29/22 Range/Units 23:45 04:31 04:31 WBC 27.1 H (3.8-10.6) k/uL RBC 3.43 L (3.80-5.40) m/uL Hgb 9.9 L (11.4-16.0) gm/dL Hct 32.6 L (34.0-46.0) % MCHC 30.3 L (31.0-37.0) g/dL Plt Count 742 H (150-450) k/uL Neutrophils # 26.2 H (1.3-7.7) k/uL Lymphocytes # 0.4 L (1.0-4.8) k/uL Sodium 133 L (137-145) mmol/L Chloride (98-107) mmol/L BUN 24 H (7-17) mg/dL Creatinine 0.46 L (0.52-1.04) mg/dL Glucose 70 L (74-99) mg/dL Plasma Lactic Acid Roberto (0.7-2.0) mmol/L Calcium 7.8 L (8.4-10.2) mg/dL Alkaline Phosphatase 214 H (38-126) U/L Total Protein 5.0 L (6.3-8.2) g/dL Albumin 2.4 L (3.5-5.0) g/dL Ur Specific [place] >1.050 H (1.001-1.035) Urine Protein Trace H (Negative) Chest x-ray: report reviewed CT scan - chest: report reviewed Assessment and Plan (1) Weakness Current Visit: Yes Status: Acute Priority: High Code(s): R53.1 - WEAKNESS SNOMED Code(s): 14480102 (2) Abdominal mass Current Visit: Yes Status: Acute Priority: High Code(s): R19.00 - INTRA- ABD AND PELVIC SWELLING, MASS AND LUMP, UNSP SITE SNOMED Code(s): 433510615 Plan: Abdominal mass: -CT abdomen/pelvis in the emergency room revealed large abdominal mass with mixed attenuation and enhancement consistent with tumor and retroperitoneal lymphadenopathy. -Patient reports being seen approximately 3-4 months ago at [facility] and had a CAT scan which showed an abdominal mass, however, patient has not had any further workup since. Will request records -Will obtain CT chest with contrast to r/o further metastasis -LECTURER IN COMPUTER SCIENCE has been consulted to determine if her pelvic/abdominal mass could be c onsidered for possible resection. We'll wait for recommendation and refer patient to LECT[facility]ER IN COMPUTER SCI[employer]/ONC if an appropriate surgical candidate -Will consider IR consult for biopsy of retroperitonial lymph node, pending CT chest -CA 19-9, CEA, and CA-125 ordered -Will plan for f/u in office once biopsy has been obtained to discuss results and treatment options -Patient has been updated on POC and is agreeable Weakness: -Progressing weakness, likely r/t progressing pelvic/abdominal mass -Agree with IV hydration, supplemental nutrition and occupational therapy consult -IM managing attests: I have performed H&P and developed impression and plan of care for patient, discussed with dictator. I agree with dictated note, documented as a scribe
--- NOTE | 2022-10-29 16:59 | P.HPOB ---
History of Present Illness H&P Date: 10/29/22 Chief Complaint: Abdominal pain This is a 72 year old female with a past medical history of COPD and Multiple Sclerosis who presents to the emergency room for failure to thrive. She was diagnosed at [facility] with a large abdominal mass approximately [address] via [address] abdomen that was suspicious for ovarian cancer. However, she never followed up with a Environmental Programs Specialist as she was advised to do. Her daughter is at the bedside today and states her mother has lost about 25 pounds in the last 6 months. The patient states she has had abdominal bloating and decreased appetite for the past 9 months. She also has gradually worsening bilateral lower extremity pitting edema of the past several months and now has difficulty with ambulation. She denies fever, chills, chest pain, shortness of breath. CT of the Abdomen and Pelvis show a 22cm abdominal mass with septations and internal enhancement, as well as retroperitoneal lymphadenopathy. CXR is negative for mas ses but consistent with COPD. Gynecologic History: , 2 prior vaginal deliveries. Menopause at age 52, no history of hormone replacement. Patient reports history of partial hysterectomy for unknown reason in her late 50s. Strong family history of breast cancer in 3 of her sisters as well as ovarian cancer in one of these sisters. Her daughter recently tested positive for BRCA1. Past Medical History Past Medical History: COPD, Osteoarthritis (OA) Additional Past Medical History / Comment(s): MS History of Any Multi-Drug Resistant Organisms: None Reported Past Surgical History: Cholecystectomy Additional Past Surgical History / Comment(s): L shoulder and L knee replace Smoking Status: Current every day smoker Medications and Allergies Home Medications Medication Instructions Recorded Confirmed Type Acetaminophen [Tylenol Extra 1,000 mg PO BID 10/28/22 10/28/22 History Strength] Allergies Allergy/AdvReac Type Severity Reaction Status Date / Time erythromycin base Allergy Unknown Verified 10/28/22 21:06 Penicillins Allergy Unknown Verified 10/28/22 21:06 Sulfa (Sulfonamide Allergy Unknown Verified 10/28/22 21:06 Antibiotics) Exam Vital Signs Temp Pulse Pulse Resp BP BP Pulse Ox 10/29/22 12:00 97.5 F L 76 16 101/63 92 L 10/29/22 06:57 98.3 F 70 16 102/59 92 L 10/29/22 06:05 98 F 87 16 101/61 97 02/27/23 04:00 84 16 104/53 97 10/29/22 03:00 95 16 106/64 99 10/29/22 02:00 98 16 113/58 96 10/29/22 01:00 89 16 113/65 96 10/29/22 00:00 106 H 16 101/63 95 10/28/22 23:00 86 16 115/55 98 10/28/22 22:00 80 16 117/68 99 10/28/22 21:00 101 H 16 114/63 100 10/28/22 20:20 97.7 F 103 H 16 112/76 100 Intake and Output 10/29/22 10/29/22 10/29/22 06:59 14:59 22:59 Other: Voiding Method Diaper Incontinent Weight 45.359 kg 45.359 kg Focused physical exam is performed. The patient is conversing pleasantly, in no apparent distress at this time. The patient is cachectic. Her abdomen is visible bloated and distended. On abdominal exam, there is a solid, mobile mass approximately 20 cm in size extending up to the level of the umbilicus. Pelvic examination is deferred at this time given the ease of palpation on abdominal exam and the patient's limited mobility. - OBG Physical Exam Abdomen: mass Results Result Diagrams: 10/29/22 04:31 10/29/22 04:31 Abnormal Lab Results - Last 24 Hours (Table) 10/28/22 10/28/22 10/28/22 Range/Units 20:52 20:52 20:52 WBC 30.7 H (3.8-10.6) k/uL RBC (3.80-5.40) m/uL Hgb 11.1 L (11.4-16.0) gm/dL Hct (34.0-46.0) % MCHC 30.5 L (31.0-37.0) g/dL Plt Count 788 H (150-450) k/uL Neutrophils # 29.8 H (1.3-7.7) k/uL Lymphocytes # 0.4 L (1.0-4.8) k/uL Sodium 131 L (137-145) mmol/L Chloride 96 L (98-107) mmol/L BUN 28 H (7-17) mg/dL Creatinine (0.52-1.04) mg/dL Glucose 108 H (74-99) mg/dL Plasma Lactic Acid Roberto 2.6 H* (0.7-2.0) mmol/L Calcium 8.3 L (8.4-10.2) mg/dL Alkaline Phosphatase 265 H (38-126) U/L Total Protein 5.7 L (6.3-8.2) g/dL Albumin 2.9 L (3.5-5.0) g/dL Ur Specific [place] (1.001-1.035) Urine Protein (Negative) 10/28/22 10/29/22 10/29/22 Range/Units 23:45 04:31 04:31 WBC 27.1 H (3.8-10.6) k/uL RBC 3.43 L (3.80-5.40) m/uL Hgb 9.9 L (11.4-16.0) gm/dL Hct 32.6 L (34.0-46.0) % MCHC 30.3 L (31.0-37.0) g/dL Plt Count 742 H (150-450) k/uL Neutrophils # 26.2 H (1.3-7.7) k/uL Lymphocytes # 0.4 L (1.0-4.8) k/uL Sodium 133 L (137-145) mmol/L Chloride (98-107) mmol/L BUN 24 H (7-17) mg/dL Creatinine 0.46 L (0.52-1.04) mg/dL Glucose 70 L (74-99) mg/dL Plasma Lactic Acid Roberto (0.7-2.0) mmol/L Calcium 7.8 L (8.4-10.2) mg/dL Alkaline Phosphatase 214 H (38-126) U/L Total Protein 5.0 L (6.3-8.2) g/dL Albumin 2.4 L (3.5-5.0) g/dL Ur Specific [place] >1.050 H (1.001-1.035) Urine Protein Trace H (Negative) Assessment and Plan Assessment: 72 year old female with a large 22cm abdominal mass with strong family history of breast cancer, ovarian cancer, and BRCA 1 positivity. Plan: Suspicious for ovarian cancer. Recommend OVA-1 testing and follow up with Dr. Cantor (Healthcare Project Manager Onc) at [facility] out of [place] once discharge from the hospital for further management recommendations. Time with Patient: Greater than 30 (35 minutes)
[2022-10-29 18:56] LABS: Cancer Antigen 19-9 93.5 U/mL (0.0-34.9); Carcinoembryonic Antigen 2.4 ng/mL (0.0-4.9)
[2022-10-29] MEDS: KETOROLAC 15 MG/ML 1 ML VIAL IVP SCH (20:43)
[2022-10-30] MEDS: KETOROLAC 15 MG/ML 1 ML VIAL IVP SCH ×5 (00:07→23:28)
--- NOTE | 2022-10-30 08:24 | CT ---
EXAMINATION TYPE: CT chest w con DATE OF EXAM: 10/30/2022 COMPARISON: Radiograph 10/28/2022 HISTORY: 72-year-old female Abdominal mass, possible metastases TECHNIQUE: Contiguous axial scanning of the chest after the administration of 70 mL of Isovue 300. C oronal/sagittal reconstructions performed. CT DLP: 122.2mGycm. Automatic exposure control utilized for a dose reduction. FINDINGS: Reverse left shoulder arthroplasty noted. Patient is cachectic. Heart normal size. Small anterior pericardial effusion measuring 7 mm thick. Aorta normal caliber conventional arch vessel branching anatomy. No thoracic lymphadenopathy by CT size criteria. Large caliber to the main right and left pulmonary arteries measuring up to 2.7 cm suggesting underly ing pulmonary artery hypertension. There is advanced emphysematous change noted in the lungs. There is a small right pleural effusion. T here is mild patchy groundglass change at the right lower lobe. Mild biapical pleural-parenchymal sca rring, right greater than left. There is right middle lobe collapse which may be on a chronic basis. Otherwise, no suspicious pulmonary nodules or masses are seen. Mild superior endplate deformity with lucency noted involving L2. Chronic-appearing superior endplate Schmorl's node T10. IMPRESSION: 1. COPD with advanced emphysema and pulmonary artery hypertension. 2. Small right pleural effusion with mild patchy groundglass the right lower lobe. Correlate for sarah y aspiration or developing pneumonia. 3. Right middle lobe collapse, possibly chronic in this patient. Clinically correlate. No convincing evidence for metastatic disease in the chest. 4. Superior endplate fracture of L2. Correlate for any focal pain here. Overall vertebral body height is maintained at this time. No significant paravertebral soft tissue swelling noted. The fracture ma y be subacute or chronic.
[2022-10-30] MEDS ORDERED: NYSTATIN 100,000 UNIT/ML SUSP 500,000 UNIT/5 ML CUP PO SCH (09:00)
[2022-10-30] MEDS: MAG HYDROX/AL HYDROX/SIMETH 30 ML, LIDOCAINE VISCOUS 2% 30 ML, diphenhydrAMINE ELIXIR 7... PO SCH ×12 (09:51→23:30)
[2022-10-30] MEDS: CLINDAMYCIN 600 MG in DEXTROSE 5% IN WATER 50 ML IVPB SCH ×6 (09:51→23:27)
--- NOTE | 2022-10-30 12:20 | P.PN ---
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 Objective - Vital Signs Vital signs: Vital Signs Temp 97.5 F L 10/30/22 07:52 Pulse 105 H 10/30/22 07:52 Resp 16 10/30/22 07:52 BP 104/64 10/30/22 07:52 Pulse Ox 93 L 10/30/22 07:52 FiO2 21 10/30/22 07:34 Intake & Output 10/29/22 10/30/22 10/30/22 18:59 06:59 18:59 Intake Total 240 Balance 240 Weight 45.359 kg Intake: Oral 240 Other: Voiding Method Diaper Diaper Incontinent Incontinent # Voids 1 1 1 # Bowel Movements 1 - Exam Thin, frail, emaciated, bloated abd, weak-unable to adjust her body weight independently, resp even and unlabored, congested cough, skin warm and dry to touch. - Constitutional General appearance: Present: cooperative, no acute distress - EENT Eyes: Present: anicteric sclerae ENT: Present: hearing grossly normal - Labs CBC & Chem 7: 10/29/22 04:31 10/29/22 04:31 Labs: Abnormal Lab Results - Last 24 Hours (Table) 10/29/22 10/29/22 Range/Units 04:31 04:31 CA 19-9 Antigen 93.5 H (0.0-34.9) U/mL CA 125 Antigen 220.0 H (0.0-30.1) U/mL - Imaging and Cardiology CT scan - chest: report reviewed Assessment and Plan (1) Abdominal mass Current Visit: Yes Status: Acute Priority: High Code(s): R19.00 - INTRA- ABD AND PELVIC SWELLING, MASS AND LUMP, UNSP SITE SNOMED Code(s): 108834418 (2) Weakness Current Visit: Yes Status: Acute Priority: High Code(s): R53.1 - WEAKNESS SNOMED Code(s): 18090311 Plan: -Reports from [place] reviewed. Pt had cancelled 2 appts to be seen since the abd mass findings about 04/23 -Field Rep notes reviewed -CT chest report reviewed, no masses/LAD seen -Discussed with Case Mgmt and RN. Pt reports to them that she wants to go home, not to rehab. When we saw pt discussed with her that when her family comes in we will have PT/OT assess her family's ability to manage her needs. If there are safety concerns for either pt or family she unfortunately will not have a choice but to do rehab. She verbalized understanding. -Reviewed again with pt suspicions for ovarian malignancy. She has to have a Field Rep Oncologist to evaluate her, perform biopsy and give recommendations as to what is the best approach based on primary. With pt poor PS concerned that she would even be a candidate or tolerate surgery/chemo. -RN contacted us when son came in. Pt and son are interested in learning more about palliative/hospice philosophies. They both agree that pt is not really interested in seeing more Doctors. -Contacted Palliative care [facility] and discussed case with her. She will see pt and family today. -From a Med Onc standpoint there is nothing further that we can offer pt at this time. We are available to answer questions or address concerns if needed. Attests: I have seen and examined pt, performed H&P, developed impression and plan of care. Discussed with dictator. Agree with documentation, dictated as a scribe. Time with Patient: Greater than 30
--- NOTE | 2022-10-30 12:37 | CDI ---
Documentation Clarification Form Date: 10/30/2022 12:19:06 PM From: Shaye Hewitt RN, CCDS Admit Date: 10/28/2022 11:35:00 PM Patient Name: Nasim Holland Visit Number: [id number] Discharge Date: ATTENTION: The Clinical Documentation Specialists (CDI) and [facility] Coding Staff appreciate your assistance in clarifying documentation. Please respond to the clarification below the line at the bottom and electronically sign. The CDI & [facility] Coding staff will review the response and follow-up if needed. Please note: Queries are made part of the Legal Health Record. If you have any questions, please contact the author of this message via ITS. Dr. Mackenzie Estes The Registered Dietitian assessment on 10/29/2022 indicates this patient meets criteria for severe malnutrition in the context of acute illness. Based on this information and the findings below, is there an additional diagnosis that is clinically appropriate for this patient? History/Risk Factors: Ovarian mass, current smoker Clinical Indicators: 72-year-old female present with generalized weakness, large abdominal mass. RD Consult Assessment: She has muscle wasting of clavicles, deltoids, trapezius, fat loss of triceps. 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 gain Monitor oral nutrition supplement intake Is there an additional diagnosis that is clinically appropriate for this patient? [ ] Mild Protein-Calorie Malnutrition [ ] Moderate Protein-Calorie Malnutrition [ x ] Severe Protein-Calorie Malnutrition [ ] No additional diagnosis/Not clinically significant [ ] Other condition, please specify [ ] Unable to Determine ( Template Last Revised: October 2020) MTDD
--- NOTE | 2022-10-30 13:06 | CDI ---
Documentation Clarification Form Date: 10/30/2022 1:04:12 PM From: Shaye Hewitt Phone: Admit Date: 10/28/2022 11:35:00 PM Patient Name: Nasim Holland Visit Number: [id number] Discharge Date: ATTENTION: The Clinical Documentation Specialists (CDI) and [facility] Coding Staff appreciate your assistance in clarifying documentation. Please respond to the clarification below the line at the bottom and electronically sign. The CDI & [facility] Coding staff will review the response and follow-up if needed. Please note: Queries are made part of the Legal Health Record. If you have any questions, please contact the author of this message via ITS. Dr. Mackenzie Gonzales coccyx pressure ulcer stage 1 is documented in the ED assessment on 10/28/2022 and in the nursing wound care assessment starting on 10/29/2022 as coccyx stage 1, right buttock stage 1. Additional clarification regarding the stage of the pressure ulcer is requested. History/Risk Factors: Ovarian mass, current smoker Clinical Indicators: 72-year-old female present with generalized weakness, large abdominal mass. Her general appearance per ED is alert, cachectic. Bilateral lover extremity pitting edema; stage I sacral decubitus ulcer documented. Location: Sacral Wound description: No drainage Treatment: Dressing change to coccyx per protocol Turn and position Q2 hrs, incontinent care check hourly Please clarify the stage of pressure ulcer Right Buttock, and coccyx, if known: [ x ] Stage 1 Pressure Ulcer Right Buttock, POA [ x ] Stage 1 Pressure Ulcer Coccyx POA [ ] Other condition, please specify [ ] Unable to determine Clinical Definitions: Stage 1 Pressure Ulcer: intact skin, non-blanching redness of local area Stage 2 Pressure Ulcer: Partial thickness, loss of dermis, pink wound bed Stage 3 Pressure Ulcer: Full thickness tissue loss Stage 4 Pressure Ulcer: Full thickness tissue loss with exposed bone, tendon, or muscle. Unstageable pressure ulcer: Full thickness tissue loss in which the base of the ulcer is covered by slough (yellow, bustamante, olson, green or brown) and/or eschar (bustamante, brown or black) in the wound bed. (Template Last Revised: October 2020) MTDD
[2022-10-30] MEDS: ACETAMINOPHEN TAB 325 MG TAB PO PRN ×2 (13:35→23:29)
--- NOTE | 2022-10-30 14:04 | P.CONS ---
History of Present Illness - Reason for Consult Consult date: 10/30/22 Goals of care Requesting physician: Kylie Harris - Chief Complaint Failure to thrive - History of Present Illness Patient is a 72-year-old female with a past medical history significant for multiple sclerosis, COPD, and osteoarthritis. She was brought to our emergency department by her daughter on 10/28/22 for concerns of progressive weakness and a decreased appetite. The patient had a CT done at [facility] approximately three months ago. She was told she has an abdominal mass that may be ovarian cancer. She was instructed to follow up with a [employer] [employer] oncologist. She has cancelled two follow up appointments made with them. Work up in the emergency department included a CXR consistent with COPD, no acute lung process. Mild pleural scarring noted at the lung apices. CT abdomen/pelvis with IV contrast reveals a large abdominal mass with mixed attenuation and enhancement consistent with tumor. No bowel obstruction. Retroperitoneal lymphadenopathy. Review of Systems Constitutional: Reports fatigue, Reports weakness, Denies chills, Denies fever Cardiovascular: Denies chest pain, Denies shortness of breath Respiratory: Denies cough Gastrointestinal: Reports bloating, Reports loss of appetite Past Medical History Past Medical History: COPD, Osteoarthritis (OA) Additional Past Medical History / Comment(s): MS History of Any Multi-Drug Resistant Organisms: None Reported Past Surgical History: Cholecystectomy Additional Past Surgical History / Comment(s): L shoulder and L knee replace Smoking Status: Current every day smoker Medications and Allergies Home Medications Medication Instructions Recorded Confirmed Type Acetaminophen [Tylenol Extra 1,000 mg PO BID 10/28/22 10/28/22 History Strength] Allergies Allergy/AdvReac Type Severity Reaction Status Date / Time erythromycin base Allergy Unknown Verified 10/28/22 21:06 Penicillins Allergy Unknown Verified 10/28/22 21:06 Sulfa (Sulfonamide Allergy Unknown Verified 10/28/22 21:06 Antibiotics) Physical Exam Vitals: Vital Signs Temp Pulse Resp BP Pulse Ox FiO2 10/30/22 08:15 105 H 16 10/30/22 07:52 97.5 F L 105 H 16 104/64 93 L 10/30/22 07:34 95 21 10/30/22 02:00 98.2 F 91 18 92/59 96 10/29/22 19:47 97.8 F 76 18 98/62 94 L Intake and Output 0210/30/22 10/30/22 22:59 06:59 14:59 Intake Total 240 Balance 240 Intake: Oral 240 Other: Voiding Method Diaper Diaper Incontinent Incontinent # Voids 1 1 1 # Bowel Movements 1 General: Chronically ill appearing, cachectic, and appears older than stated age HEENT: Head is atraumatic, normocephalic. Sclera are clear. Lungs: Respirations even and nonlabored. Abdomen/GI: bloated, distended, non tender Musculoskeletal/ Extremities: Frail, + muscle atrophy, + generalized weakness Neurologic: Awake, alert and oriented times 3. CN II-XII grossly intact. No focal deficits. Results CBC & Chem 7: 10/29/22 04:31 10/29/22 04:31 Labs: Abnormal Lab Results - Last 24 Hours (Table) 10/29/22 10/29/22 Range/Units 04:31 04:31 CA 19-9 Antigen 93.5 H (0.0-34.9) U/mL CA 125 Antigen 220.0 H (0.0-30.1) U/mL Chest x-ray: report reviewed CT scan - abdomen: report reviewed CT scan - chest: report reviewed CT scan - pelvis: report reviewed Assessment and Plan Assessment: Social * Occupation - Retired * Marital status - Single * Children/grandchildren - 2 adult children * Residence - apartment * Who do you reside with - lives alone * ETOH - no * Tobacco - current smoker * Illicit drugs - none Functional Assessment * Able to walk independently - NO * Assistive devices - walker * Able to use the bathroom independently - No * Continent - No * Require assistance bathing- Yes * Able to feed self - Yes * Able to clean house/do laundry - some * Transportation - patient states she still drives * Able to shop - no * Who manages medications - daughter * Who manages finances - patient and daughter Psychological/Emotional * Dementia present - NO * Insight and judgment - Yes * Depression - No * Suicidal thoughts - No * Good support system - Yes * Patients goals - comfort * Frequent hospitalizations - No * Desire to keep coming back to the hospital for treatment - No * Symptoms * Pain - 4/10 abdominal pain, continue tylenol, morphine, Toradol * Fatigue - + weakness/debilitated, emaciated * SOB - No * Insomnia - No * N/V - No * Anxiety - No * Depression - No * Confusion - No * Agitation - No * Hallucinations - No * Appetite/weight loss - + loss of appetite and recent weight loss. Encourage oral intake, Continue regular diet and carnation oral supp TIDWM * Dysphagia - No * Constipation - No, LBM 10/29 * Incontinence - yes, wears brief * Itch - no * Cough - + dry cough * Oral sores - continue Juan's solution Plan: Summary/Goals - The patient is resting in bed. She is thin, frail, emaciated and cachectic. Her son, Randy, and daughter, Ana, are present. They state that the patient does not know for sure what her abdominal mass is because it was never biopsied. They understand that is it is suspected to be ovarian cancer. The patient has had two follow up appointments made for her, but chose to cancel them both. The patient and her family are aware that she is too weak to withstand any treatment at this time. Per PT evaluation, she is too weak to stand. The patient does not want to go to rehab. She has lost her appetite and has had low oral intake. information regarding palliative care and hospice philosophies and services provided. The patient and both her children agree that hospice would be more appropriate for her. The patient lives alone. They would like to complete a financial assessment for the [facility]. If she can not afford the hospice home, her daughter would take her home with her. Recommendations - hospice Advanced Directives - none on file Code Status - full code Thank you for this consultation [facility] Palliative Care [facility] [address] Email: [email or web address]
--- NOTE | 2022-10-30 14:29 | P.PN ---
Subjective Progress Note Date: 10/30/22 The patient is a 72-year-old female with no known PMH who was brought in to the emergency room accompanied by her daughter for failure to thrive. The patient states that she was diagnosed with a large abdominal mass after a hospital visit 6 months ago. She was informed after CT abdomen that she likely had ovarian cancer and was advised to follow-up with her PCP in [employer]. The patient however refused to make any further appointments and had not been seen by any medical provider. She continued to gradually lose weight over the past 6 months and is now unable to ambulate and has had minimal oral intake over the last one week. She reports feeling fatigued and having leg achiness. She also reports g radually worsening bilateral lower extremity pitting edema over the past several months. Denies experiencing chest discomfort or shortness of breath. Also denied fever, chills, cough. CT abdomen and pelvis in the emergency room revealed large abdominal mass with mixed attenuation consistent with tumor as well as retroperitoneal lymphadenopathy. Chest x-ray was consistent with COPD. EKG reveals sinus rhythm with short TX interval at 96 bpm. Laboratory evaluation was remarkable for leukocytosis of 30.7, platelet count 788, lactic acid 2.6, sodium 137 1, chloride 96, BUN 28, and proBNP 602. She reports family history of BRCA positive breast cancer and ovarian cancer in 3 of her relatives. Patient was seen and examined. No acute events overnight. Patient reports throbbing-like pain in both of her feet. Gen: awake, alert, cachectic HEENT: normocephalic, atraumatic, good hearing acuity, moist mucous membranes Resp: good air exchange, breathing comfortably with no accessory muscle use, decreased BS BL CVS: good distal perfusion x 4, tachycardic, normal S1 S2 GI: Distended MSK: no pitting edema, no clubbing Neuro: non-focal, moving all extremities Psych: cooperative, flat affect #Sepsis related to aspiration pneumonia #Acute hypoxic respiratory failure secondary to the above #Abdominal mass #Leukocytosis #Normocytic anemia with thrombocytosis #Hyponatremia #Prerenal azotemia Resolved: Lactic acidosis Based on my assessment of this patient, this patient meets a high complexity level of care. I have reviewed the following admissions consultant notes: Oncology note reviewed from 10/30, palliative care consulted, patient needs [employer] oncologist evaluation. I have reviewed the results of the following tests: CEA 2.4. CA 19-9 93.5. CA [address] chest shows findings of COPD, small right pleural effusion with patchy groundglass right lower lobe, possible aspiration pneumonia, right middle lobe collapse which is chronic, superior endplate fracture of L2. I have ordered the following tests: CBC ordered for tomorrow to evaluate anemia and leukocytosis. BMP ordered for tomorrow to evaluate hyponatremia and renal function. I have discussed the care of this patient with the following independent historian: The case was discussed with physical therapy who recommended senior living facility on discharge. I have independently interpreted the following test below: None. I have discussed the management of this patient with the following physician: None. This patient has a high risk of morbidity due to the following reasons: Patient meets sepsis criteria with leukocytosis, tachycardia, hypotension and positive source of infection. CT chest shows signs of aspiration pneumonia. Patient be started on clindamycin 600 mg IV every 8 hours. Sputum culture and blood cultures ordered. Telemetry monitoring his ordered. Blood cultures ordered. Attempt to wean supplemental oxygen. Swallow evaluation ordered. Patient has an acute diagnosis of abdominal mass which is likely cancerous with family history of BRCA positive breast and ovarian cancer that poses a threat to life or bodily function. Her BMI is 18.3 and she is also failure to thrive. She will need to follow-up with [employer] oncologist in the outpatient setting. Patient requires pain control with Toradol 15 mg IV Q6H as needed for pain and Morphine 2 mg IV Q6H as needed for severe pain. She will be continued on normal saline at 70 ml/hr for hyponatremia and prerenal azotemia related to dehydration. Objective - Vital Signs Vital signs: Vital Signs Temp 97.5 F L 10/30/22 07:52 Pulse 105 H 10/30/22 08:15 Resp 16 10/30/22 08:15 BP 104/64 10/30/22 07:52 Pulse Ox 93 L 10/30/22 07:52 FiO2 21 10/30/22 07:34 Intake & Output 10/29/22 10/30/22 10/30/22 18:59 06:59 18:59 Intake Total 240 Balance 240 Weight 45.359 kg Intake: Oral 240 Other: Voiding Method Diaper Diaper Diaper Incontinent Incontinent Incontinent # Voids 1 1 1 # Bowel Movements 1 - Labs CBC & Chem 7: 10/29/22 04:31 02/27/23 04:31 Labs: Abnormal Lab Results - Last 24 Hours (Table) 10/29/22 10/29/22 Range/Units 04:31 04:31 CA 19-9 Antigen 93.5 H (0.0-34.9) U/mL CA 125 Antigen 220.0 H (0.0-30.1) U/mL
[2022-10-30] MEDS: SODIUM CHLORIDE 0.9% 1,000 ML IV SCH (17:25)
[2022-10-31] MEDS: KETOROLAC 15 MG/ML 1 ML VIAL IVP SCH ×4 (05:49→23:51)
[2022-10-31] MEDS: ACETAMINOPHEN TAB 325 MG TAB PO PRN ×3 (05:52→22:49)
[2022-10-31 07:07] LABS: HCT 28.9 % (34.0-46.0); HGB 8.7 gm/dL (11.4-16.0); Hypochromasia Moderate; MCHC 29.9 g/dL (31.0-37.0); MCV 96.7 fL (80.0-100.0); Platelet Count 606 k/uL (150-450); RBC 2.99 m/uL (3.80-5.40); RDW 15.5 % (11.5-15.5); WBC 17.3 k/uL (3.8-10.6)
[2022-10-31 07:24] LABS: African American GFR (CKD) >90 (>60 ml/min/1.73 sqM); Anion Gap 3 mmol/L; Blood Urea Nitrogen 20 mg/dL (7-17); Calcium 7.4 mg/dL (8.4-10.2); Carbon Dioxide 25 mmol/L (22-30); Chloride 110 mmol/L (98-107); Glucose 64 mg/dL (74-99); Non-African American GFR(CKD) >90 (>60 ml/min/1.73 sqM); Potassium 4.5 mmol/L (3.5-5.1); Sodium 138 mmol/L (137-145)
[2022-10-31] MEDS: MAG HYDROX/AL HYDROX/SIMETH 30 ML, LIDOCAINE VISCOUS 2% 30 ML, diphenhydrAMINE ELIXIR 7... PO SCH ×12 (09:42→21:07)
[2022-10-31] MEDS: CLINDAMYCIN 600 MG in DEXTROSE 5% IN WATER 50 ML IVPB SCH ×6 (10:34→23:51)
[2022-10-31] MEDS: SODIUM CHLORIDE 0.9% 1,000 ML IV SCH (10:34)
--- NOTE | 2022-10-31 15:40 | P.PN ---
Subjective Progress Note Date: 10/31/22 The patient is a 72-year-old female with no known PMH who was brought in to the emergency room accompanied by her daughter for failure to thrive. The patient states that she was diagnosed with a large abdominal mass after a hospital visit 6 months ago. She was informed after CT abdomen that she likely had ovarian cancer and was advised to follow-up with her PCP in [employer]. The patient however refused to make any further appointments and had not been seen by any medical provider. She continued to gradually lose weight over the past 6 months and is now unable to ambulate and has had minimal oral intake over the last one week. She reports feeling fatigued and having leg achiness. She also reports g radually worsening bilateral lower extremity pitting edema over the past several months. Denies experiencing chest discomfort or shortness of breath. Also denied fever, chills, cough. CT abdomen and pelvis in the emergency room revealed large abdominal mass with mixed attenuation consistent with tumor as well as retroperitoneal lymphadenopathy. Chest x-ray was consistent with COPD. EKG reveals sinus rhythm with short PA interval at 96 bpm. Laboratory evaluation was remarkable for leukocytosis of 30.7, platelet count 788, lactic acid 2.6, sodium 137 1, chloride 96, BUN 28, and proBNP 602. She reports family history of BRCA positive breast cancer and ovarian cancer in 3 of her relatives. Patient was seen and examined. No acute events overnight. She has no complaints. Gen: awake, alert, cachectic HEENT: normocephalic, atraumatic, good hearing acuity, moist mucous membranes Resp: good air exchange, breathing comfortably with no accessory muscle use, decreased BS BL CVS: good distal perfusion x 4, tachycardic, normal S1 S2 GI: Distended MSK: no pitting edema, no clubbing Neuro: non-focal, moving all extremities Psych: cooperative, flat affect #Sepsis related to aspiration pneumonia #Hypoglycemia #Acute hypoxic respiratory failure secondary to the above #Abdominal mass #Leukocytosis #Normocytic anemia with thrombocytosis #Hyponatremia #Prerenal azotemia Resolved: Lactic acidosis Based on my assessment of this patient, this patient meets a moderate complexity level of care. I have reviewed the following [employer] consultant notes: Palliative care note from 10/30, they would like to complete a financial assessment for the [facility]. If she can not afford the hospice home, her daughter would take her home with her. I have reviewed the results of the following tests: CBC shows leukocytosis of 17.3 and hemoglobin of 8.7 with platelet count of 606. WBC count decreasing after starting antibiotics. Hemoglobin trended down likely dilutional with no signs of active bleeding. Thrombocytosis likely reactive. BMP shows chloride of 110, BUN of 20, creatinine is 0.51, glucose of 64, calcium of 7.4. I have ordered the following tests: CBC ordered for tomorrow to evaluate anemia and leukocytosis. I have discussed the care of this patient with the following independent historian: None. I have independently interpreted the following test below: None. I have discussed the management of this patient with the following physician: None. This patient has a moderate risk of morbidity due to the following reasons: Patient meets sepsis criteria with leukocytosis, tachycardia, hypotension and positive source of infection. CT chest shows signs of aspiration pneumonia. Patient is continued on clindamycin 600 mg IV every 8 hours. Sputum culture and blood cultures ordered. Telemetry monitoring his ordered. Blood cultures ordered. Patient currently on 2 L nasal cannula. Attempt to wean supplemental oxygen. Swallow evaluation ordered. Patient has an acute diagnosis of abdominal mass which is likely cancerous with family history of BRCA positive breast and ovarian cancer that poses a threat to life or bodily function. Her BMI is 18.3 and she is also failure to thrive. She will need to follow-up with [employer] oncologist in the outpatient setting. Patient requires pain control with Toradol 15 mg IV Q6H as needed for pain and Morphine 2 mg IV Q6H as needed for severe pain. Discontinue normal saline and started D5 normal saline at 75 mL/h for h ypoglycemia. Case discussed with case management, plans for hospice house versus home with family. To be decided tomorrow. Objective - Vital Signs Vital signs: Vital Signs Temp 97.8 F 10/31/22 14:42 Pulse 75 10/31/22 14:42 Resp 17 10/31/22 14:42 BP 95/52 10/31/22 14:42 Pulse Ox 96 10/31/22 14:42 FiO2 21 10/30/22 07:34 Intake & Output 10/30/22 10/31/22 10/31/22 18:59 06:59 18:59 Intake Total 240 0 240 Balance 240 0 240 Intake: Oral 240 0 240 Other: Voiding Method Diaper Diaper Incontinent Incontinent # Voids 1 2 - Labs CBC & Chem 7: 10/31/22 06:23 10/31/22 06:23 Labs: Abnormal Lab Results - Last 24 Hours (Table) 10/31/22 10/31/22 Range/Units 06:23 06:23 WBC 17.3 H (3.8-10.6) k/uL RBC 2.99 L (3.80-5.40) m/uL Hgb 8.7 L (11.4-16.0) gm/dL Hct 28.9 L (34.0-46.0) % MCHC 29.9 L (31.0-37.0) g/dL Plt Count 606 H (150-450) k/uL Chloride 110 H (98-107) mmol/L BUN 20 H (7-17) mg/dL Creatinine 0.51 L (0.52-1.04) mg/dL Glucose 64 L (74-99) mg/dL Calcium 7.4 L (8.4-10.2) mg/dL
[2022-10-31] MEDS: DEXTROSE 5%-0.9% NACL 1,000 ML IV SCH (16:29)
[2022-11-01] MEDS: KETOROLAC 15 MG/ML 1 ML VIAL IVP SCH ×3 (06:08→16:38)
[2022-11-01] MEDS: DEXTROSE 5%-0.9% NACL 1,000 ML IV SCH (06:09)
[2022-11-01] MEDS: CLINDAMYCIN 600 MG in DEXTROSE 5% IN WATER 50 ML IVPB SCH ×4 (10:02→16:38)
[2022-11-01] MEDS: MAG HYDROX/AL HYDROX/SIMETH 30 ML, LIDOCAINE VISCOUS 2% 30 ML, diphenhydrAMINE ELIXIR 7... PO SCH ×12 (10:02→22:38)
[2022-11-01 12:08] LABS: Glucose,Whole Blood 94 mg/dL (70-110)
[2022-11-01] MEDS ORDERED: MORPHINE SULFATE 2 MG/ML SYRINGE IVP STA (14:24)
--- NOTE | 2022-11-01 14:27 | P.PN ---
Subjective Progress Note Date: 11/01/22 The patient is a 72-year-old female with no known PMH who was brought in to the emergency room accompanied by her daughter for failure to thrive. The patient states that she was diagnosed with a large abdominal mass after a hospital visit 6 months ago. She was informed after CT abdomen that she likely had ovarian cancer and was advised to follow-up with her PCP in [employer]. The patient however refused to make any further appointments and had not been seen by any medical provider. She continued to gradually lose weight over the past 6 months and is now unable to ambulate and has had minimal oral intake over the last one week. She reports feeling fatigued and having leg achiness. She also reports g radually worsening bilateral lower extremity pitting edema over the past several months. Denies experiencing chest discomfort or shortness of breath. Also denied fever, chills, cough. CT abdomen and pelvis in the emergency room revealed large abdominal mass with mixed attenuation consistent with tumor as well as retroperitoneal lymphadenopathy. Chest x-ray was consistent with COPD. EKG reveals sinus rhythm with short IN interval at 96 bpm. Laboratory evaluation was remarkable for leukocytosis of 30.7, platelet count 788, lactic acid 2.6, sodium 137 1, chloride 96, BUN 28, and proBNP 602. She reports family history of BRCA positive breast cancer and ovarian cancer in 3 of her relatives. Patient was seen and examined. No acute events overnight. She is complaining of throbbing pain in both of her feet. Family has decided on hospice at home. Gen: awake, alert, cachectic HEENT: normocephalic, atraumatic, good hearing acuity, moist mucous membranes Resp: good air exchange, breathing comfortably with no accessory muscle use, decreased BS BL CVS: good distal perfusion x 4, tachycardic, normal S1 S2 GI: Distended MSK: no pitting edema, no clubbing Neuro: non-focal, moving all extremities Psych: cooperative, flat affect #Sepsis related to aspiration pneumonia #Hypoglycemia #Acute hypoxic respiratory failure secondary to the above #Abdominal mass #Leukocytosis #Normocytic anemia with thrombocytosis #Hyponatremia #Prerenal azotemia Resolved: Lactic acidosis Based on my assessment of this patient, this patient meets a moderate complexity level of care. I have reviewed the following applications sales consultant notes: None. I have reviewed the results of the following tests: POC glucose 94. Blood culture negative at 24H. I have ordered the following tests: CBC ordered for tomorrow to evaluate anemia and leukocytosis. I have discussed the care of this patient with the following independent historian: The case was discussed with Rohini from [facility], plans to go home with hospice, daughter needs one day to clean out space for medical equipment. I have independently interpreted the following test below: None. I have discussed the management of this patient with the following physician: None. This patient has a moderate risk of morbidity due to the following reasons: Patient meets sepsis criteria with leukocytosis, tachycardia, hypotension and positive source of infection. CT chest shows signs of aspiration pneumonia. Patient is continued on clindamycin 600 mg IV every 8 hours. Sputum culture and blood cultures ordered. Telemetry monitoring his ordered. Blood cultures ordered. Patient currently on 2 L nasal cannula. Attempt to wean supplemental oxygen. Patient has an acute diagnosis of abdominal mass which is likely cancerous with family history of BRCA positive breast and ovarian cancer that poses a threat to life or bodily function. Her BMI is 18.3 and she is also failure to thrive. Family has decided on no further testing or treatment. Plans for hospice at home. Patient requires pain control with Toradol 15 mg IV Q6H as needed for pain and Morphine 2 mg IV Q6H as needed for severe pain. Discontinue normal saline and started D5 normal saline at 75 mL/h for hypoglycemia. Objective - Vital Signs Vital signs: Vital Signs Temp 97.3 F L 11/01/22 12:16 Pulse 73 11/01/22 12:16 Resp 15 11/01/22 12:16 BP 94/57 11/01/22 12:16 Pulse Ox 97 11/01/22 12:16 FiO2 21 10/30/22 07:34 Intake & Output 10/31/22 11/01/22 11/01/22 18:59 06:59 18:59 Intake Total 1080 Balance 1080 Intake: Intake, IV Titration 840 Amount Sodium Chloride 0.9% 1, 840 000 ml @ 70 mls/hr IV . [id number] [facility] Rx#:[id number] Oral 240 Other: Voiding Method Diaper Diaper Diaper Incontinent Incontinent Incontinent # Voids 3 1 - Labs CBC & Chem 7: 10/31/22 06:23 10/31/22 06:23 Labs: Microbiology - Last 24 Hours (Table) 10/30/22 15:24 Blood Culture - Preliminary Blood No Growth after 24 hours
[2022-11-02] MEDS: CLINDAMYCIN 600 MG in DEXTROSE 5% IN WATER 50 ML IVPB SCH ×4 (00:06→08:17)
[2022-11-02] MEDS: DEXTROSE 5%-0.9% NACL 1,000 ML IV SCH ×2 (00:09→08:59)
[2022-11-02] MEDS: MORPHINE SULFATE 2 MG/ML SYRINGE IVP PRN ×2 (02:53→12:05)
[2022-11-02 06:23] LABS: HCT 28.4 % (34.0-46.0); HGB 8.5 gm/dL (11.4-16.0); Hypochromasia Moderate; MCH 28.8 pg (25.0-35.0); MCV 95.9 fL (80.0-100.0); Mean Platelet Volume 7.5; Platelet Count 539 k/uL (150-450); RBC 2.96 m/uL (3.80-5.40); RDW 15.6 % (11.5-15.5); WBC 15.3 k/uL (3.8-10.6)
[2022-11-02] MEDS: MAG HYDROX/AL HYDROX/SIMETH 30 ML, LIDOCAINE VISCOUS 2% 30 ML, diphenhydrAMINE ELIXIR 7... PO SCH ×4 (08:18)
[2022-11-02 08:29] VITALS: BP 95/57; PULSE 75; RESP 15; TEMP 98.3
--- NOTE | 2022-11-02 12:46 | P.PN ---
Subjective Progress Note Date: 10/31/22 Patient is a 72-year-old female with a past medical history significant for multiple sclerosis, COPD, and osteoarthritis. She was brought to our emergency department by her daughter on 10/28/22 for concerns of progressive weakness and a decreased appetite. The patient had a CT done at [place] approximately three months ago. She was told she has an abdominal mass that may be ovarian cancer. She was instructed to follow up with a [facility] oncologist. She has cancelled two follow up appointments made with them. Work up in the emergency department included a CXR consistent with COPD, no acute lung process. Mild pleural scarring noted at the lung apices. CT abdomen/pelvis with IV contrast reveals a large abdominal mass with mixed attenuation and enhancement consistent with tumor. No bowel obstruction. Retroperitoneal lymphadenopathy. 10/30 he patient is resting in bed. She is thin, frail, emaciated and cachectic. Her son, Randy, and daughter, Ana, are present. They state that the patient does not know for sure what her abdominal mass is because it was never biopsied. They understand that is it is suspected to be ovarian cancer. The patient has had two follow up appointments made for her, but chose to cancel them both. The patient and her family are aware that she is too weak to w ithstand any treatment at this time. Per PT evaluation, she is too weak to stand. The patient does not want to go to rehab. She has lost her appetite and has had low oral intake. information regarding palliative care and hospice philosophies and services provided. The patient and both her children agree that hospice would be more appropriate for her. The patient lives alone. They would like to complete a financial assessment for the [facility]. If she can not afford the [facility], her daughter would take her home with her. Objective - Vital Signs Vital signs: Vital Signs Temp 97.8 F 10/31/22 14:42 Pulse 75 10/31/22 14:42 Resp 17 10/31/22 14:42 BP 95/52 10/31/22 14:42 Pulse Ox 96 10/31/22 14:42 FiO2 21 10/30/22 07:34 Intake & Output 10/30/22 10/31/22 10/31/22 18:59 06:59 18:59 Intake Total 240 0 240 Balance 240 0 240 Intake: Oral 240 0 240 Other: Voiding Method Diaper Diaper Incontinent Incontinent # Voids 1 2 - Exam General: Chronically ill appearing, cachectic, and appears older than stated age HEENT: Head is atraumatic, normocephalic. Sclera are clear. Lungs: Respirations even and nonlabored. Abdomen/GI: bloated, distended, non tender Musculoskeletal/ Extremities: Frail, + muscle atrophy, + generalized weakness Neurologic: Awake, alert and oriented times 3. CN II-XII grossly intact. No focal deficits. - Labs CBC & Chem 7: 11/02/22 06:06 10/31/22 06:23 Labs: Abnormal Lab Results - Last 24 Hours (Table) 10/31/22 10/31/22 Range/Units 06:23 06:23 WBC 17.3 H (3.8-10.6) k/uL RBC 2.99 L (3.80-5.40) m/uL Hgb 8.7 L (11.4-16.0) gm/dL Hct 28.9 L (34.0-46.0) % MCHC 29.9 L (31.0-37.0) g/dL Plt Count 606 H (150-450) k/uL Chloride 110 H (98-107) mmol/L BUN 20 H (7-17) mg/dL Creatinine 0.51 L (0.52-1.04) mg/dL Glucose 64 L (74-99) mg/dL Calcium 7.4 L (8.4-10.2) mg/dL Assessment and Plan Assessment: Symptoms * Pain - 4/10 abdominal pain, continue tylenol, morphine, Toradol * Fatigue - + weakness/debilitated, emaciated * SOB - No * Insomnia - No * N/V - No * Anxiety - No * Depression - No * Confusion - No * Agitation - No * Hallucinations - No * Appetite/weight loss - + loss of appetite and recent weight loss. Encourage oral intake, Continue regular diet and carnation oral supp TIDWM * Dysphagia - No * Constipation - No, LBM 10/29 * Incontinence - yes, wears brief * Itch - no * Cough - + dry cough * Oral sores - continue Juan's solution Plan: Summary/Goals - The patient and her family met with [facility]. The daughter is to fill out a financial assessment today. They are hoping she qualifies for financial assistance for the hospice home. If she does not qualify, then the back up plan is for the patient to go home with her daughter and hospice care. She can use the hospice home for respite care when needed. Recommendations - hospice Advanced Directives - none on file Code Status - full code Thank you for this consultation Vicky Groves [facility]- Palliative Care [facility] [id number] Email: [email or web address]
--- NOTE | 2022-11-02 12:53 | P.PN ---
Subjective Progress Note Date: 11/02/22 Patient is a 72-year-old female with a past medical history significant for multiple sclerosis, COPD, and osteoarthritis. She was brought to our emergency department by her daughter on 10/28/22 for concerns of progressive weakness and a decreased appetite. The patient had a CT done at [place] approximately three months ago. She was told she has an abdominal mass that may be ovarian cancer. She was instructed to follow up with a [employer] oncologist. She has cancelled two follow up appointments made with them. Work up in the emergency department included a CXR consistent with COPD, no acute lung process. Mild pleural scarring noted at the lung apices. CT abdomen/pelvis with IV contrast reveals a large abdominal mass with mixed attenuation and enhancement consistent with tumor. No bowel obstruction. Retroperitoneal lymphadenopathy. 10/30 he patient is resting in bed. She is thin, frail, emaciated and cachectic. Her son, Randy, and daughter, Ana, are present. They state that the patient does not know for sure what her abdominal mass is because it was never biopsied. They understand that is it is suspected to be ovarian cancer. The patient has had two follow up appointments made for her, but chose to cancel them both. The patient and her family are aware that she is too weak to w ithstand any treatment at this time. Per PT evaluation, she is too weak to stand. The patient does not want to go to rehab. She has lost her appetite and has had low oral intake. information regarding palliative care and hospice philosophies and services provided. The patient and both her children agree that hospice would be more appropriate for her. The patient lives alone. They would like to complete a financial assessment for the [facility]. If she can not afford the hospice home, her daughter would take her home with her. 10/31 The patient and her family met with [facility]. The daughter is to fill out a financial assessment today. They are hoping she qualifies for financial assistance for the hospice home. If she does not qualify, then the back up plan is for the patient to go home with her daughter and hospice care. She can use the hospice home for respite care when needed. 11/01 The patient did not qualify for financial assistance for [facility]. The patient's family met with [facility]. The plan is for the patient to go home with her daughter and hospice care. However, the daughter needs a day to clean up and make room for equipment. Objective - Vital Signs Vital signs: Vital Signs Temp 98.3 F 11/02/22 08:12 Pulse 75 11/02/22 08:12 Resp 15 11/02/22 08:12 BP 95/57 11/02/22 08:12 Pulse Ox 96 11/02/22 08:23 FiO2 21 10/30/22 07:34 Intake & Output 11/01/22 11/02/22 11/02/22 18:59 06:59 18:59 Intake Total 950 Output Total 650 Balance 950 -650 Weight 45.359 kg Intake: Intake, IV Titration 950 Amount Clindamycin 600 mg In 50 Dextrose 5% in Water 50 ml @ 50 mls/hr IVPB Q8HR [facility] Rx#:[id number] Dextrose 5%-0.9% NaCl 1, 900 000 ml @ 75 mls/hr IV . [id number] [facility] Rx#:[id number] Output: Urine 650 Other: Voiding Method Diaper Indwelling Catheter Incontinent - Exam General: Chronically ill appearing, cachectic, and appears older than stated age HEENT: Head is atraumatic, normocephalic. Sclera are clear. Lungs: Respirations even and nonlabored. On 2L NC Abdomen/GI: bloated, distended, non tender Musculoskeletal/ Extremities: Frail, + muscle atrophy, + generalized weakness Neurologic: Awake, alert and oriented times 3. CN II-XII grossly intact. No focal deficits. - Labs CBC & Chem 7: 11/02/22 06:06 10/31/22 06:23 Labs: Abnormal Lab Results - Last 24 Hours (Table) 11/02/22 Range/Units 06:06 WBC 15.3 H (3.8-10.6) k/uL RBC 2.96 L (3.80-5.40) m/uL Hgb 8.5 L (11.4-16.0) gm/dL Hct 28.4 L (34.0-46.0) % MCHC 30.0 L (31.0-37.0) g/dL RDW 15.6 H (11.5-15.5) % Plt Count 539 H (150-450) k/uL Microbiology - Last 24 Hours (Table) 10/30/22 15:24 Blood Culture - Preliminary Blood No Growth after 48 hours Assessment and Plan Assessment: Symptoms * Pain - 6/10 abdominal pain, continue tylenol and morphine * Fatigue - + weakness/debilitated, emaciated * SOB - No * Insomnia - No * N/V - No * Anxiety - No * Depression - No * Confusion - No * Agitation - No * Hallucinations - No * Appetite/weight loss - + loss of appetite and recent weight loss. Encourage oral intake, Continue regular diet and carnation oral supp TIDWM * Dysphagia - No * Constipation - No, LBM 10/29 * Incontinence - yes, wears brief * Itch - no * Cough - + dry cough * Oral sores - continue Juan's solution Plan: Summary/Goals - The patient is scheduled to be picked up by ambulance today and taken to her daughter's house. [facility] has delivered equipment and medications. Recommendations - hospice Advanced Directives - none on file Code Status - full code Thank you for this consultation Vicky Groves [facility]- Palliative Care [place] [phone] Email: [email or web address]
--- NOTE | 2022-11-02 15:33 | P.DS ---
Providers Date of admission: 10/28/22 23:35 Expected date of discharge: 11/02/22 Attending physician: Kranthi Saleh MD Consults: 10/28/22 23:34 Consult Physician Urgent Consulting Provider: Ian Garza Consult Reason/Comments: Abdominal mass Do you want consulting provider notified?: Yes 10/29/22 12:35 Consult Physician Routine Consulting Provider: Priti Horton Consult Reason/Comments: pelvic/abdominal mass, concerning for malignancy Do you want consulting provider notified?: Yes 10/30/22 11:56 Consult to Palliative Care Routine Consulting Provider: Vicky Groves Consult Reason/Comments: info for pt and family, palliative care/hospice goals of care, philosophy Do you want consulting provider notified?: Already Contacted Primary care physician: Physician Nonstaff Hospital Course: The patient is a 72-year-old female with no known PMH who was brought in to the emergency room accompanied by her daughter for failure to thrive. The patient states that she was diagnosed with a large abdominal mass after a hospital visit 6 months ago. She was informed after CT abdomen that she likely had ovarian cancer and was advised to follow-up with her PCP in [employer]. The patient however refused to make any further appointments and had not been seen by any medical provider. She continued to gradually lose weight over the past 6 months and is now unable to ambulate and has had minimal oral intake over the last one week. She reports feeling fatigued and having leg achiness. She also reports gradually worsening bilateral lower extremity pitting edema over the past several months. Denies experiencing chest discomfort or shortness of breath. Also denied fever, chills, cough. CT abdomen and pelvis in the emergency room revealed large abdominal mass with mixed attenuation consistent with tumor as well as retroperitoneal lymphadenopathy. Chest x-ray was consistent with COPD. EKG reveals sinus rhythm with short AL interval at 96 bpm. Laboratory evaluation was remarkable for leukocytosis of 30.7, platelet count 788, lactic acid 2.6, sodium 137 1, chloride 96, BUN 28, and proBNP 602. She reports family history of BRCA positive breast cancer and ovarian cancer in 3 of her relatives. [employer]AFF MEMBER and oncology was consulted and recommended outpatient follow-up with [employer] oncology for further management. CEA 125, and CA-19-9 were both found to be elevated. Palliative care was also consulted and family was eventually agreeable for home with hospice. She was also started on clindamycin IV for aspiration pneumonia that was seen on CT chest. Patient was seen and examined. No acute events overnight. Patient reports no complaints. Pertinent studies include CT AP, chest CT, chest x-ray. Gen: awake, alert, cachectic HEENT: normocephalic, atraumatic, good hearing acuity, moist mucous membranes Resp: good air exchange, breathing comfortably with no accessory muscle use, decreased BS BL CVS: good distal perfusion x 4, tachycardic, normal S1 S2 GI: Distended MSK: no pitting edema, no clubbing Neuro: non-focal, moving all extremities Psych: cooperative, flat affect Discharge diagnoses. #Sepsis related to aspiration pneumonia #Hypoglycemia #Acute hypoxic respiratory failure secondary to the above #Abdominal mass #Leukocytosis #Normocytic anemia with thrombocytosis #Hyponatremia #Prerenal azotemia Resolved: Lactic acidosis This complex discharge took 35 minutes to complete. Patient Condition at Discharge: Stable Plan - Discharge Summary New Discharge Prescriptions: New clindamycin HCL [Cleocin] 300 mg PO Q8H #6 cap Nystatin 100,000 Unit/ml Susp [Mycostatin Oral Susp] 3,000,000 unit PO TID #100 ml Lidocaine Viscous [Xylocaine Viscous 2%] 30 ml PO TID #100 ml Continue Acetaminophen [Tylenol Extra Strength] 1,000 mg PO BID Discharge Medication List Acetaminophen [Tylenol Extra Strength] 1,000 mg PO BID 10/28/22 [History] Lidocaine Viscous [Xylocaine Viscous 2%] 30 ml PO TID #100 ml 11/02/22 [Rx] Nystatin 100,000 Unit/ml Susp [Mycostatin Oral Susp] 3,000,000 unit PO TID #100 ml 11/02/22 [Rx] clindamycin HCL [Cleocin] 300 mg PO Q8H #6 cap 11/02/22 [Rx] Follow up Appointment(s)/Referral(s): None,Stated [REFERRING] - 1-2 days Curtis Abrams MD [REFERRING] - 1 Week Patient Instructions/Handouts: Clindamycin (By mouth), Hospice (DC) Activity/Diet/Wound Care/Special Instructions: Diet: Regular Discharge Disposition: HOME WITH HOSPICE
--- NOTE | 2022-11-06 10:13 | CDI ---
Documentation Clarification Form Date: 11/06/2022 9:55:01 AM From: Tabitha Ibarra Admit Date: 10/28/2022 11:35:00 PM Patient Name: Nasim Holland Visit Number: [id number] Discharge Date: 11/02/2022 1:40:00 PM ATTENTION: The Clinical Documentation Specialists (CDI) and [facility] Coding Staff appreciate your assistance in clarifying documentation. Please respond to the clarification below the line at the bottom and electronically sign. The CDI & [facility] Coding staff will review the response and follow-up if needed. Please note: Queries are made part of the Legal Health Record. If you have any questions, please contact the author of this message via ITS. Dr. Mackenzie Estes Sepsis related to aspiration pneumonia is documented in progress note 10/30/22 through the discharge summary 11/02/22. Patient was admitted 10/28/22. For each diagnosis, documentation must be clear to determine if the condition was present at the time of the patients inpatient admission or developed during the hospital stay. Additional clarification regarding the Sepsis is requested. History/Risk Factors: 72 year old female, failure to thrive, diagnosed with a large abdominal mass 6 months ago, has not made any follow-ups. CT is suggesting likely ovarian cancer. BRCA positive breast cancer and ovarian cancer in 3 of the patients relatives. Patient has gradually lost weight, unable to ambulate, and pitting edema. Clinical Indicators: per progress note 10/30: patient meets sepsis criteria with leukocytosis, tachycardia, hypotension, and positive source of infection. Discharged on hospice. 10/28: T 97.7 Pulse: 103 Resp rate: 16 BP: 112/76 02 100 room air 10/29: T 97.8 Pulse: 76 Resp Rate: 18 BP: 98/62 02: 94 on room air 10/28 WBC: 30.7 lactic acid: 1.[address]: small right pleural effusion with mild patchy ground glass the right lower lobe, correlate for early aspiration or developing pneumonia Treatment: started on IV clindamycin 600 mg every 8 hours, sputum and blood cultures, 2L O2 Definition of Present on Admission (POA): A diagnosis present at the time the order for admission to inpatient status was written. Please clarify if Sepsis was POA [ x ] Y = Yes, Sepsis was present at the time of the order for inpatient admission. [ ] N = No, Sepsis was not present at the time of the order for inpatient admission. [ ] W = Clinically undetermined if the condition was present at the time of the order for inpatient admission. MTDD
== END 2022-11-02 13:40 | disposition hospice, home (50) | DRG 871 ==
LOC: EC 20:19 → 5NMEDONC 23:35 → 6NMEDSUR 10-29 02:23 → 5NMEDONC 10-29 02:43
PROVIDERS: ADMIT Internal Medicine; ATTEND Internal Medicine
DX: A41.9 Sepsis, unspecified organism (principal); E43 Unspecified severe protein-calorie malnutrition; J69.0 Pneumonitis due to inhalation of food and vomit; J96.01 Acute respiratory failure with hypoxia; R64 Cachexia; Z68.1 Body mass index [BMI] 19.9 or less, adult; E87.1 Hypo-osmolality and hyponatremia; E87.20 Acidosis, unspecified; C56.9 Malignant neoplasm of unspecified ovary; J98.19 Other pulmonary collapse; R60.0 Localized edema; R59.0 Localized enlarged lymph nodes; Z66 Do not resuscitate; F17.210 Nicotine dependence, cigarettes, uncomplicated; J44.9 Chronic obstructive pulmonary disease, unspecified; R62.7 Adult failure to thrive; R32 Unspecified urinary incontinence; J98.4 Other disorders of lung; E16.2 Hypoglycemia, unspecified; L89.311 Pressure ulcer of right buttock, stage 1; L89.151 Pressure ulcer of sacral region, stage 1; E87.8 Other disorders of electrolyte and fluid balance, not elsewhere classified; D64.9 Anemia, unspecified; D75.839 Thrombocytosis, unspecified; Z51.5 Encounter for palliative care; G35 Multiple sclerosis; M19.90 Unspecified osteoarthritis, unspecified site; E86.0 Dehydration; Z96.612 Presence of left artificial shoulder joint; Z96.652 Presence of left artificial knee joint; Z28.310 Unvaccinated for COVID-19; Z88.0 Allergy status to penicillin; Z88.2 Allergy status to sulfonamides; Z88.1 Allergy status to other antibiotic agents; Z90.711 Acquired absence of uterus with remaining cervical stump; Z86.010 Personal history of colon polyps
CPT/HCPCS: 36415; 71045; 71260; 74177; 80048; 80053; 81003; 81503; 82378; 83605; 83735; 83880; 84443; 84484; 85025; 85027; 85610; 85730; 86301; 86304; 87040; 93005; 94760; 96360; 96361; 99285